=== PATIENT | male | born 1950 | race Caucasian/White ===

== ENCOUNTER → 2018-03-07 | Outpatient (CLI) | payer MEDICARE, BC, OTHER ==
[~2018-03-07] MED LIST: IOPAMIDOL 370 MG/ML 200 ML INFUS..BTL INJ ONE; SODIUM CHLORIDE 0.9% 250ML 250 ML ONE
[2018-03-07 09:22] LABS: BLOOD UREA NITROGEN 18 mg/dL (7-26); BUN/CREATININE RATIO 19 (6-25); CREATININE, SERUM 0.96 mg/dL (0.72-1.25); EST GLOMERULAR FILTRATION RATE > 60 ML/MIN (60-)
--- NOTE | 2018-03-07 11:32 | Diagnostic Imaging Report ---
EXAM: CT abdomen and pelvis without and with contrast INDICATION: Evaluate etiology of hematuria, remote history of bladder cancer COMPARISON: None. TECHNIQUE: Abdomen and pelvis were scanned in prone position without and with contrast. Delayed phase imaging obtained. Coronal and sagittal reformations were obtained. Hematuria protocol. IV CONTRAST: 100 mL of Isovue 370 ORAL CONTRAST: Water RADIATION DOSE: Total DLP: 1349 mGy*cm COMPLICATIONS: None FINDINGS: LINES and TUBES: None. LOWER THORAX: Coronary atherosclerosis. Patchy dependent atelectasis. HEPATOBILIARY: No focal hepatic lesions. No biliary ductal dilation. GALLBLADDER: No radio-opaque stones or sludge. No wall thickening. SPLEEN: No splenomegaly. PANCREAS: No focal masses or ductal dilatation. ADRENALS: No adrenal nodules KIDNEYS/URETERS: Kidneys enhance symmetrically. No hydronephrosis. No solid mass lesions. The majority of the ureters are opacified and demonstrate no specific evidence of urothelial lesion. There is a left lower pole 6 mm hyperdense cyst (75 Hounsfield units on non-contrast imaging), likely hemorrhagic cyst. Subcentimeter right renal hypodensity is too small to characterize, but likely represents a cyst. GI TRACT: No abnormal distention, wall thickening, or evidence of bowel obstruction. Appendix is not visualized, however there are no secondary signs of appendicitis in the right lower quadrant. PELVIS: The bladder is opacified on delayed images and demonstrates no evidence of urothelial lesion. The bladder is diffusely mildly thick-walled, which may partially reflect underdistention. LYMPH NODES: No lymphadenopathy. VESSELS: Moderate atherosclerotic changes of the abdominal aorta and branch vessels. PERITONEUM / RETROPERITONEUM: No free air or fluid. BONES AND SOFT TISSUES: No acute bony findings or suspicious lytic or blastic lesions. IMPRESSION: No evidence of renal mass, stone, or urothelial lesion. Diffuse mild thickening of the bladder, which may reflect underdistention or cystitis in the appropriate clinical context. Signed by: Dr. Jayne Toledo MD on 03/07/2018 11:28 AM
== END ==
LOC: CT 08:24
PROVIDERS: ATTEND Urology
DX: R31.0 Gross hematuria (principal); C67.9 Malignant neoplasm of bladder, unspecified
CPT/HCPCS: 36415; 74178; 82565; 84520; J7050; Q9967

== ENCOUNTER → 2019-01-10 | Outpatient (CLI) | payer BC, MEDICARE, OTHER ==
--- NOTE | 2019-01-10 15:32 | Diagnostic Imaging Report ---
EXAM: Renal Ultrasound INDICATION: ^NEOPLASM OF KIDNEY COMPARISON: None TECHNIQUE: Transverse and longitudinal images of the kidneys and bladder were obtained. FINDINGS: Right Kidney: Length: 11.7 cm Appearance: Normal echogenicity. Collecting system: No hydronephrosis Stones: None Cyst/Mass: None Left Kidney: Length: 12.3 cm Appearance: Normal echogenicity. Collecting system: No hydronephrosis Stones: None Cyst/Mass: The anterior lower pole exophytic cyst seen on the CT of 03/07/2018 is not well visualized on this ultrasound. Bladder: No mass or calculi. Bilateral ureteral jets visualized. Prevoid volume estimate of 505.9 cc. The prostate measures 3.3 x 1.6 x 2.07 m with a volume estimate of 5.4 cc. IMPRESSION: No renal calculi are hydronephrosis. The anterior left lower pole exophytic cystic structure seen on the CT of 03/07/2018 is not well visualized on ultrasound. Signed by: Clifton Dorado MD on 01/10/2019 3:28 PM
== END ==
LOC: US 14:28
PROVIDERS: ATTEND Urology
DX: D41.00 Neoplasm of uncertain behavior of unspecified kidney (principal)
CPT/HCPCS: 76770